=== PATIENT | male | born 1960 ===

== ENCOUNTER → 2018-06-13 22:56 | Outpatient (REF) | payer OTHER, SELFPAY ==
[2018-06-13 23:20] LABS: Add Manual Diff / Slide Review NO; Basophils Percent Auto 0.9 % (0-2); Eosinophils Percent Auto 1.9 % (2-4); Hematocrit 41.2 % (41-53); Hemoglobin 13.9 g/dL (13.5-17.5); Lymphocytes Percent Auto 34.9 % (25-40); Mean Corpuscular HGB Conc 33.6 % (30-36); Mean Corpuscular Hemoglobin 28.7 PG (26-34); Mean Corpuscular Volume 85.3 fL (80-100); Monocytes Percent Auto 6.4 % (3-14); Neutrophils Absolute Auto 2900 /uL (1500-7000); Neutrophils Percent Auto 55.9 % (50-75); Platelet Count 254 X10^3/uL (150-400); Red Blood Cell Count 4.83 X10^6/uL (4.5-5.9); Red Cell Distribution Width 12.8 % (11.6-14.8); White Blood Cell Count 5.2 X10^3/uL (4.5-11.0)
[2018-06-13 23:35] LABS: Erythrocyte Sedimentation Rate 4 MM/HR (0-15)
[2018-06-14 00:11] LABS: Alanine Aminotransferase 52 IU/L (21-72); Albumin 4.2 g/dL (3.5-5.0); Albumin Globulin Ratio 1.6 (1.0-2.8); Alkaline Phosphatase 70 U/L (38-126); Aspartate Aminotransferase 33 IU/L (17-59); BUN Creatinine Ratio 25.6 (6-22); Bilirubin Total 0.4 mg/dL (0.2-1.3); Blood Urea Nitrogen 23 mg/dL (9-20); Calcium 9.7 mg/dL (8.4-10.2); Carbon Dioxide 25 mmol/L (22-32); Chloride 105 mmol/L (98-107); Estimated Glomerular Filt Rate > 60.0 mL/min (>60); Globulin 2.7 g/dL (1.7-4.1); Glucose 93 mg/dL (70-100); HEMOLYSIS < 15 (0-50); Potassium 4.4 mmol/L (3.4-5.1); Sodium 141 mmol/L (137-145); Total Protein 6.9 g/dL (6.3-8.2); Uric Acid 4.2 mg/dL (3.5-8.5)
[2018-06-14 08:48] LABS: C-Reactive Protein Quant 0.5 mg/dL (<1.0)
[2018-06-14 12:34] LABS: Rheumatoid Factor < 8.6 IU/mL (<12.0)
[2018-06-17 21:02] LABS: ANA Screen, IFA Negative (Negative)
== END ==
LOC: LAB 22:56
PROVIDERS: Visit Provider Family Medicine Addiction Medicine
DX: S23.8XXA Sprain of other specified parts of thorax, initial encounter (principal); S33.8XXA Sprain of other parts of lumbar spine and pelvis, initial encounter
CPT/HCPCS: 36415; 80053; 84550; 85025; 85651; 86038; 86140; 86430